=== PATIENT | male | born 1975 | race Caucasian/White ===

== ENCOUNTER 2021-06-14 11:30 | Emergency (ER) | payer SELFPAY ==
[2021-06-14] MEDS ORDERED: Sodium Chloride 0.9% 10 ML Syringe FLUSH PRN (11:50)
[2021-06-14] MEDS ORDERED: Furosemide 40 MG/4 ML VIAL IVPUSH ONE (11:50)
[2021-06-14] MEDS ORDERED: Morphine 4 MG/ML Syringe IVPUSH ONE (11:51)
[2021-06-14] MEDS ORDERED: HYDROmorphone 0.5 MG/0.5 ML Syringe IVPUSH ONE (15:00)
[2021-06-14] MEDS ORDERED: LORazepam 2 MG/ML SDV IVPUSH ONE (15:00)
== END 2021-06-14 16:02 | disposition home or self-care (01) ==
LOC: JD.ED 11:30
DX: I50.9 Heart failure, unspecified (principal); R60.0 Localized edema; R00.0 Tachycardia, unspecified
CPT/HCPCS: 36415; 71045; 80053; 83880; 84484; 85025; 86140; 93005; 96374; 96375; 99285; J1170; J1940; J2060; J2270

== ENCOUNTER 2022-08-29 07:30 | Emergency (ER) | payer SELFPAY ==
[2022-08-29] MEDS ORDERED: Aspirin 81 MG Tab.Chew PO ONE (07:50)
[2022-08-29] MEDS ORDERED: Sodium Chloride 0.9% 10 ML Syringe FLUSH PRN ×2 (07:50→11:40)
[2022-08-29] MEDS ORDERED: Furosemide 40 MG/4 ML VIAL IVPUSH ONE (07:51)
[2022-08-29] MEDS: Morphine 4 MG/ML Syringe IVPUSH PRN ×2 (08:12→09:01)
[2022-08-29 08:59] LABS: CORONAVIRUS COVID-19 NAA NEGATIVE (NEGATIVE)
[2022-08-29] MEDS ORDERED: HYDROmorphone 1 MG/ML Syringe IVPUSH ONE (10:17)
[2022-08-29] MEDS ORDERED: Famotidine 20 MG/2 ML SDV IVPUSH ONE (11:38)
[2022-08-29] MEDS ORDERED: HYDROmorphone 0.5 MG/0.5 ML Syringe IVPUSH ONE ×2 (11:38→13:16)
[2022-08-29] MEDS ORDERED: Iopamidol 755 Mg/ML 100 ML Bottle IVPUSH ONE (11:40)
[2022-08-29] MEDS ORDERED: Alum Hydrox/Mag Hydrox/Simeth 30 ML, Lidocaine 2% 15 ML PO ONE ×2 (11:40)
[2022-08-29] MEDS ORDERED: Sodium Chloride 0.9% 100 ML IV SCH (11:45)
[2022-08-29] MEDS ORDERED: Ketorolac 30 MG/ML SDV IVPUSH ONE (13:52)
== END 2022-08-29 14:25 | disposition home or self-care (01) ==
LOC: JD.ED 07:30
DX: J15.6 Pneumonia due to other Gram-negative bacteria (principal); I10 Essential (primary) hypertension; Z72.0 Tobacco use; Z20.822 Contact with and (suspected) exposure to COVID-19
CPT/HCPCS: 0241U; 36415; 71045; 71275; 80053; 83880; 84484; 85025; 85379; 93005; 96374; 96375; 96376; 99285; A9270; J1170; J1885; J1940; J2270; J3490; Q9967; 93010; 99284

== ENCOUNTER 2022-08-30 19:10 | Emergency (ER) | payer SELFPAY ==
[2022-08-30] MEDS: Nitroglycerin 0.4 MG Tab.SL SL PRN ×2 (19:31→19:44)
[2022-08-30] MEDS ORDERED: Acetaminophen 325 MG Tab PO ONE (21:00)
[2022-08-30] MEDS ORDERED: Ketorolac 30 MG/ML SDV IVPUSH ONE (21:00)
[2022-08-30] MEDS ORDERED: Potassium Chloride 20 MEQ Tab.ER PO ONE (21:17)
[2022-08-30] MEDS ORDERED: Alum Hydrox/Mag Hydrox/Simeth 30 ML, Lidocaine 2% 15 ML PO ONE ×2 (21:20)
[2022-08-30] MEDS ORDERED: Pantoprazole 40 MG Vial IVPUSH ONE (21:21)
[2022-08-30] MEDS ORDERED: Morphine 4 MG/ML Syringe IVPUSH ONE (23:46)
[2022-08-31] MEDS ORDERED: Morphine 4 MG/ML Syringe IVPUSH ONE ×2 (00:41→00:57)
[2022-08-31] MEDS ORDERED: diphenhydrAMINE 50 MG/ML SDV IVPUSH ONE (01:43)
== END 2022-08-31 05:58 | disposition home or self-care (01) ==
LOC: JD.ED 19:10
DX: R07.89 Other chest pain (principal); F41.9 Anxiety disorder, unspecified; I10 Essential (primary) hypertension; E66.9 Obesity, unspecified; Z68.43 Body mass index [BMI] 50.0-59.9, adult; Z72.0 Tobacco use
CPT/HCPCS: 36415; 71045; 80053; 80307; 83880; 84484; 85025; 93005; 96374; 96375; 96376; 99285; A9270; C9113; J1885; J2270